=== PATIENT | female | born 1970 | race Caucasian/White ===

== ENCOUNTER 2022-06-22 07:16 | Outpatient (CLI) | payer BC, SELFPAY ==
--- NOTE | 2022-06-22 07:15 | CRLHL7_ITS ---
For Patients: As a result of the Cures Act, medical imaging exams and procedure reports are released immediately into your electronic medical record. You may view this report before your referring provider. If you have questions, please contact your health care provider. Indication: Migraines. Technique: Multiplanar, multisequence MRI of the brain was performed without intravenous contrast. Comparison: None relevant available. Findings: The corpus callosum, pituitary gland and clivus appears intact. Craniocervical junction is preserved. No cerebellar tonsillar ectopia. There is no restricted diffusion. No intracranial hemorrhage. The ventricles are proportionate to the cerebral sulci. The 4th ventricle appears midline. The basal cisterns appear patent. No abnormal extra-axial fluid collection identified. There is scattered nonspecific T2 FLAIR hyperintense foci involving the periventricular and subcortical white matter. There is no intracranial mass, abnormal mass-effect or midline shift identified. Major intracranial vascular flow voids appear grossly intact. Both globes are preserved. Impression: 1. No acute/subacute infarct. 2. Scattered nonspecific T2 FLAIR hyperintense foci involving the periventricular and subcortical white matter. Differential considerations include sequela of chronic ischemic microvascular disease or migraine headaches. Dictated by Ang Yi MD @ 06/22/2022 4:29:45 PM (Electronically Signed)
== END 2022-06-22 07:17 | disposition home or self-care (01) ==
LOC: MRI 07:17
PROVIDERS: PCP Physician Assistant Medical; Visit Provider Physician Assistant Medical
DX: G43.909 Migraine, unspecified, not intractable, without status migrainosus (principal)
CPT/HCPCS: 70551

== ENCOUNTER 2023-07-24 17:53 | Outpatient (CLI) | payer BC, SELFPAY | END 2023-07-24 17:54 | disposition home or self-care (01) | LOC: LKVREF 17:55 | PROVIDERS: PCP Physician Assistant Medical; Visit Provider Emergency Medicine | DX: R10.9 Unspecified abdominal pain (principal) | CPT/HCPCS: 86140 ==

== ENCOUNTER 2023-07-30 16:39 | Outpatient (CLI) | payer BC, SELFPAY ==
--- NOTE | 2023-07-30 17:00 | CRLHL7_ITS ---
For Patients: As a result of the Century Cures Act, medical imaging exams and procedure reports are released immediately into your electronic medical record. You may view this report before your referring provider. If you have questions, please contact your health care provider. CLINICAL HISTORY: Right lower quadrant pain TECHNIQUE: 2D kline scale ultrasound. In addition color Doppler and spectral Doppler analysis was performed of the pelvis using a transabdominal and transvaginal approach. FINDINGS: The uterus is absent. The right ovary measures 3.7 x 1.9 x 2.1 cm in size and the left ovary is not visualized. The right ovary demonstrates normal arterial and venous blood flow on color Doppler and spectral Doppler analysis. There are no suspicious fluid collections within the cul-de-sac. A simple cyst is present arising from the right ovary measuring 1.3 x 1.3 x 1.6 cm. IMPRESSION: 1.6 cm simple right ovarian cyst. No ovarian torsion. No excess pelvic free fluid or adnexal mass. Dictated by Frankie Mercado MD @ 08/01/2023 7:07:54 AM (Electronically Signed)
== END 2023-07-30 16:40 | disposition home or self-care (01) ==
LOC: US 16:40
PROVIDERS: PCP Physician Assistant Medical; Visit Provider Emergency Medicine
DX: R10.31 Right lower quadrant pain (principal); N83.201 Unspecified ovarian cyst, right side
CPT/HCPCS: 76830; 76856; 93976

== ENCOUNTER 2024-01-22 13:53 | Outpatient (CLI) | payer BC, SELFPAY | END 2024-01-22 13:54 | disposition home or self-care (01) | LOC: NFLDREF 13:55 | PROVIDERS: PCP Physician Assistant Medical; Visit Provider Obstetrics & Gynecology | DX: R10.2 Pelvic and perineal pain (principal) | CPT/HCPCS: 87086 ==

== ENCOUNTER 2024-01-23 14:42 | Outpatient (CLI) | payer BC, SELFPAY ==
--- NOTE | 2024-01-23 15:00 | US_ITS ---
Patient: ARNOLD GALINDO Facility:?[facility] Patient ID:?[id number] Site Patient ID:?[id number]. Site :?1970 Study:?US-OB Pelvis TA/TV Pelvic-01/23/2024 4:20:12 PM Ordering Physician:Marcie Denney Final Report: INDICATION: Continued RLQ pain, hx of right ovarian cyst COMPARISON: 07/30/2023 TECHNIQUE: 2D kline scale and color Doppler images were acquired of the pelvis using a transabdominal and transvaginal approach. FINDINGS: Status post hysterectomy. Intact vaginal cuff. The right ovary measures 2.0 x 1.1 x 1.0 cm in size and the left ovary measures 1.6 x 0.7 x 1.0 cm. The ovaries demonstrate normal arterial and venous blood flow on color Doppler analysis. Simple anechoic right adnexal cyst measures 16 x 13 x 14 millimeters. Previously, this measured 13 x 13 x 16 millimeters. No excess pelvic free fluid. IMPRESSION: Stable right adnexal cyst measuring 16 millimeters. No evidence of ovarian torsion. Dictated by Frankie Mercado MD @ 01/24/2024 9:03:53 AM Signed by:?Frankie Mercado MD @01/24/2024 9:03:53 AM (Electronic Signature)
--- NOTE | 2024-01-23 16:00 | US_ITS ---
Patient: ARNOLD GALINDO Facility:?[facility] Patient ID:?[id number] Site Patient ID:?[id number]. Site :?1970 Study:?US-Abdomen Renal-01/23/2024 4:22:40 PM Ordering Physician:Marcie Denney Final Report: CLINICAL HISTORY: Renal calculus COMPARISON: CT 01/14/2018 TECHNIQUE: Bravo scale and color Doppler images were acquired of the kidneys and urinary bladder. FINDINGS: Hyperechoic calculus left kidney measures 9 x 5 x 7 millimeters. Additional calculus right kidney measuring 12 x 13 x 6 millimeters. No hydronephrosis, cyst or mass. The right kidney measures 11.2cm in length and the left kidney measures 11.8cm in length. The renal cortex appears of normal thickness. The urinary bladder appears normal. Color Doppler images reveal a normal appearance of both ureteral jets. There is no evidence of bladder calculi or diverticula. Bladder volume 61 cc. IMPRESSION: Bilateral nonobstructing renal calculi, similar to the prior CT. Dictated by Frankie Mercado MD @ 01/24/2024 8:57:29 AM Signed by:?Frankie Mercado MD @01/24/2024 8:57:29 AM (Electronic Signature)
== END 2024-01-23 14:43 | disposition home or self-care (01) ==
LOC: US 14:42
PROVIDERS: PCP Physician Assistant Medical; Visit Provider Obstetrics & Gynecology
DX: N20.0 Calculus of kidney (principal); N80.9 Endometriosis, unspecified; R10.2 Pelvic and perineal pain
CPT/HCPCS: 76775; 76830; 76856; 93976

== ENCOUNTER 2024-01-27 11:26 | Outpatient (CLI) | payer BC, SELFPAY | END 2024-01-27 11:27 | disposition home or self-care (01) | LOC: NFLDREF 23:34 | PROVIDERS: PCP Physician Assistant Medical; Referring Provider Physician Assistant Medical; Visit Provider Family Medicine | DX: N20.0 Calculus of kidney (principal); N39.0 Urinary tract infection, site not specified; B96.20 Unspecified Escherichia coli [E. coli] as the cause of diseases classified elsewhere | CPT/HCPCS: 87086; 87186 ==

== ENCOUNTER 2024-08-13 16:48 | Outpatient (CLI) | payer BC, SELFPAY ==
--- OUTSIDE RECORDS SUMMARY | 2024-08-13 16:51 | XMS_ITS | Referral Summary ---
Author Organization [facility] Address [address] [place] [address] Care Team Providers Care Terrazzo Journeyman Name Role Phone Unavailable Primary Care Provider Unavailabl e Source Comments Patient records contain information from all sites at [facility]. For routine questions regarding patient records, call [phone] during business hours, M-F 8:00 AM - 5:00 PM Central Time. Record requests for emergency care only can be directed to [phone] at any time.[facility] Allergies Active Allergy Reactions Criticality Noted Date Comments Cat Dander Other (see comments) Low 11/12/2007 Itchy water eyes Codeine Sulfate Nausea And Vomiting High 04/23/2012 Pollen Extracts Other (see comments) Low 11/12/2007 Itchy water eyes Meperidine Other (see comments),GI intolerance High 09/02/2004 Vomiting and passed out PN: LW Reaction: Vomiting Oxycodone-Acetaminoph en Nausea And Vomiting High 04/29/2012 Medications No known medications Active Problems Problem Noted Date Diagnosed Date Stone Kidney And Ureteral 03/06/2018 Immunizations Name Administration Dates Next Due RZV (SHINGRIX) 04/11/2022 SARS-COV-2 (COVID-19) - MODERNA(Discontinued) 01/13/2021,12/16/2020 Td (Adult), adsorbed 03/16/2021 Tdap 12/02/2009 influenza vaccine quad (FLUZONE/FLUARIX) (6 months and older)(PF) 08/25/2021,02/09/2020(Deferred: Patient Refused) Social History Tobacco Use Types Packs/Day Years Used Date Smoking Tobacco: Never Smokeless Tobacco: Never Tobacco Cessation:Counseling Given: Not Answered Nutrition Answer Date Recorded Nutrition: EVOO Fat Source Unknown 12/12 Nutrition: Servings of Fruits/Vegetables per Day Not on file 12/12/2020 Dental Answer Date Recorded Dental: Regular Dentist Unknown 12/12/19 Comments No Sex and Gender Information Value Date Recorded Sex Assigned at Female 03/06/2018 10:29 AM CDT Legal Sex Female 10:51 AM HAND MICA PLATE LAYER Gender Identity Female 03/06/2018 10:29 AM CDT Sexual Orientation Not on file Last Filed Vital Signs Vital Sign Reading Time Taken Comments Blood Pressure 102/70 06/06/2022 2:21 PM CDT Pulse 80 06/06/2022 2:21 PM CDT Temperature 36.4 ??C (97.5 ??F) 03/06/2018 10:16 AM C DT Respiratory Rate - - Oxygen Saturation - - Inhaled Oxygen Concentration - - Weight 76.9 kg (169 lb 6.8 oz) 06/06/2022 2:21 P M CDT Height 163.6 cm (5' 4.41) 06/06/2022 2:21 PM CD T Body Mass Index 28.71 06/06/2022 2:21 PM CDT Plan of Treatment Not on file Procedures Procedure Name Priority Date/Time Associated Diagnosis Comments BI BREAST SCREENING BILATERAL WITH TOMOSYNTHESIS RAD - Routine (most inpatients and all outpatients) 11/05/2023 2:54 PM HAND MICA PLATE LAYER Screening Mammogram Breast Cancer GLUCOSE, FASTING, S/P Routine 03/06/2018 11:49 AM CDT Stone Kidney And Ureteral from Last 3 Months or Most Recently Relevant to Health Maintenance Results * BI Breast Screening Bilateral with Tomosynthesis (11/05/2023 2:54 PM HAND MICA PLATE LAYER) Anatomical Region Laterality Modality Breast, Breast Imaging RST L OS, Breast Imaging ARZ LOS, Breast Imaging FLA LOS Bilateral Mammography Impressions 11/05/2023 4:07 PM HAND MICA PLATE LAYER Negative. RECOMMENDATION: ??Annual Screening Mammogram ASSESSMENT: ??BI-RADS: 1: Negative. Narrative 11/05/2023 4:07 PM HAND MICA PLATE LAYER EXAM: ??BI BREAST SCREENING BILATERAL WITH TOMOSYNTHESIS Current study was evaluated with a Computer Aided Detection (CAD) system. INDICATION: ??Screening mammogram. COMPARISON: ??Prior exam(s) were available and reviewed for comparison. DENSITY: ??c. The breast(s) are heterogeneously dense, which may obscure small masses. FINDINGS: ??No findings of malignancy. ??No significant change since prior exam. Procedure Note Jed Hoyt M.D., Ph.D. - 11/05/2023 EXAM: BI BREAST SCREENING BILATERAL WITH TOMOSYNTHESIS Current study was evaluated with a Computer Aided Detection (CAD) system. INDICATION: Screening mammogram. COMPARISON: Prior exam(s) were available and reviewed for comparison. DENSITY: c. The breast(s) are heterogeneously dense, which may obscuresmall masses. FINDINGS: No findings of malignancy. No significant change since priorexam. IMPRESSION: Negative. RECOMMENDATION: Annual Screening Mammogram ASSESSMENT: BI-RADS: 1: Negative. Zhen Araiza P.A.-C. IMG BI PROCEDURES Final Re sult * Glucose, Fasting (03/06/2018 11:49 AM CDT) Glucose, P 96 70 - 100 mg/dL 03/06/2018 12:52 PM CDT [facility] Last Intake 14 hr 03/06/2018 12:11 PM CDT [facility] Blood (Blood, Venous) 03/06/2018 11:49 AM CDT 03/06/2018 12:11 PM CDT us Heike Dumont M.D. LAB BLOOD NON ADD-ON Final Resul t [facility] [address] [place] [address], [facility] from Last 3 Months or Most Recently Relevant to Health Maintenance Insurance [facility]
--- OUTSIDE RECORDS SUMMARY | 2024-08-13 16:51 | XMS_ITS | Clinical Summary ---
Author Organization [facility] Address [place], [place] [address] Care Team Providers Care Supervisor Prepress Name Role Phone Jorditiana Daniela Hannah GONSALVES Primary Care Provider [phone] Allergies Active Allergy Reactions Criticality Noted Date Comments Meperidine Syncope,Vomiting 11/30/2010 Oxycodone-Acetaminophen Syncope,Vomiting 2010 Medications Medication Sig Dispensed Refills Start Date End Date Status midodrine (PROAMATINE) 5 mg tablet Take 1 tablet by mouth 3 times daily. 0 12/29/2010 Active leuprolide acetate (LUPRON DEPOT, 3 MONTH,) 11.25 mg injectionIndication s:Endometriosis, site unspecified Inject 11.25 mg intramuscular every 3 months. 1 Kit 0 01/31/2013 Active Immunizations Name Administration Dates Next Due Tdap 12/02/2009 12/02/2019 Family History Relation Name Status Comments Brother Alive Father Alive Mother Alive Social History Tobacco Use Types Packs/Day Years Used Date Smoking Tobacco: Never Smokeless Tobacco: Never Alcohol Use Standard Drinks/Week Comments Yes 0 (1 standard drink = 0.6 oz pur e alcohol) Rare Sex and Gender Information Value Date Recorded Sex Assigned at Not on file Gender Identity Not on file Sexual Orientation Not on file Obstetrics History Para Term AB IAB SAB Ectopic Multiple Livin g Live Births 4 2 2 0 2 0 1 1 0 2 2 Date Outcome GA Total Labor Labor/2nd/3rd Weight Sex Type Anes PTL Jennifer A1 A5 Name Clin 1999 Ectopic 1 Term 40w 0d 3.8 kg (8 lb 6 oz) F Vag Living 2002 SAB 4 Term 41w 0d 4.17 kg (9 lb 3 oz) M Vag Living Last Filed Vital Signs Vital Sign Reading Time Taken Comments Blood Pressure 98/54 01/31/2013 1:11 PM CDT Pulse 76 01/31/2013 1:11 PM CDT Temperature 37.2 ??C (98.9 ??F) 01/03/2011 1 1:37 AM CDT Respiratory Rate 16 01/03/2011 11:3 7 AM CDT Oxygen Saturation 100% 01/03/2011 11: 37 AM CDT Inhaled Oxygen Concentration - - Weight 68.9 kg (151 lb 12.8 oz) 01/31/2013 1:11 PM CDT Height 162.6 cm (5' 4) 12/30/2010 4:00 PM BLANKBOOK STITCHING MACHINE OPERATOR Body Mass Index 26.06 12/30/2010 4:00 PM BLANKBOOK STITCHING MACHINE OPERATOR Plan of Treatment Health Maintenance Due Date Last Done Comments Depression screening for age 12+ 1982 HIV for age 15-65 1985 BMI (ht and wt on same day) for age 18+ 1988 Hepatitis C screening for age 18-79 1988 Colonoscopy through age 75 2015 Lipids for age 45-75 2015 Mammogram for age 45-75 2015 09/21/20 12 (Completed outside of [facility]), 03/17/2011 Tetanus booster 12/02/2019 12/02/2009 Zoster (shingles) series for age 50+ (1 of 2) 2020 COVID-19 vaccine series ( season) 2024 01/13/2021, 12/16/2020 Influenza for age 50-64 06/22/2024 Tdap Completed 12/02/2009 Pneumococcal series for age 6-64 Aged Out No longer eligible based on patient's age to complete this topic Procedures Procedure Name Priority Date/Time Associated Diagnosis Comments SCAN-MAMMOGRAPHY REPORT 03/17/2011 12:00 AM CDT from Last 3 Months or Most Recently Relevant to Health Maintenance Results * SCAN-MAMMOGRAPHY REPORT (03/17/2011 12:00 AM CDT) Anatomical Region Laterality Modality Other Narrative Procedure Note Scanner - 03/17/2011 12:00 AM CDT Scanner OTHER from Last 3 Months or Most Recently Relevant to Health Maintenance Advance Directives * Full Code (Latest Code Status on File) Date Activated Date Inactivated Comments 01/02/2011 2:28 PM 01/03/2011 7:38 PM * Full Code Date Activated Date Inactivated Comments 01/02/2011 10:58 AM 01/02/2011 2:28 PM Care Teams Supervisor Prepress Relationship Specialty Start Date End Date Rubi January BRINA Young [address] [place], [place] [id number] PCP - General Physician Pile Driver 12/28/10
--- OUTSIDE RECORDS SUMMARY | 2024-08-13 16:51 | XMS_ITS | Clinical Summary ---
Author Organization [facility] Address [address] [place] [address] Care Team Providers Care Project Management Intern Name Role Phone Unavailable Primary Care Provider Unavailabl e Source Comments Patient records contain information from all sites at [facility]. For routine questions regarding patient records, call [phone] during business hours, M-F 8:00 AM - 5:00 PM Central Time. Record requests for emergency care only can be directed to [phone] at any time.[facility] Allergies Active Allergy Reactions Criticality Noted Date [...] (6 months and older)(PF) 08/25/2021,02/09/2020(Deferred: Patient Refused) Family History Medical History Relation Name Comments Lung cancer Father Colon cancer Maternal Grandmother Melanoma Mother Colon cancer Paternal Grandfather Relation Name Status Comments Father Maternal Grandmother Mother Paternal Grandfather Social History Tobacco Use Types Packs/Day Years Used Date Smoking Tobacco: Never Smokeless Tobacco: Never Tobacco Cessation:Counseling Given: Not Answered Nutrition Answer Date Recorded Nutrition: EVOO Fat Source Unknown 12/12 Nutrition: Servings of Fruits/Vegetables per Day Not on file 12/12/2020 Dental Answer Date Recorded Dental: Regular Dentist Unknown 12/12/19 21 Comments No Sex and Gender Information Value Date Recorded Sex Assigned at Female 03/06/2018 10:29 AM CDT Legal Sex Female 10:51 AM GRAPHIC DESIGN MANAGER Gender Identity Female 03/06/2018 10:29 AM CDT [...] 06/06/2022 2:21 PM CDT Plan of Treatment Health Maintenance Due Date Last Done Comments CT Colonography 1970 Cologuard 1970 Colonoscopy 1970 Colorectal Cancer Screening 1970 FIT 1970 HIV Screening 1970 Hepatitis C Screening 1970 Lipid (Cholesterol) Screening 1970 Hepatitis B Vaccines (1 of 3 - 19+ 3-dose series) 1989 Fasting Glucose for Diabetes Screening 03/06/2021 03/06/2018 Depression Screening (Annual PHQ-2) 10/22/2023 COVID-19 Vaccine ( season) 2024 10/18/2023, 09/23/2021, 01/13/2021, Additional history exists Influenza Vaccine (#1) 2024 3, 06/13/2022, 08/25/2021, Additional history exists Mammogram 11/05/2024 11/05/2023, 05/22, 03/23/2021, Additional history exists DTaP,Tdap,and Td Vaccines (4 - Td or Tdap) 03/16/2031 03/16/2021, 02/09/2020, 12/02/2009 Zoster Vaccines Completed 06/14/2022, 04/11/2022 Pneumococcal vaccine (0-64 years) Aged Out No longer eligible based on patient's age to complete this topic Procedures Procedure Name Priority Date/Time Associated Diagnosis Comments BI BREAST SCREENING BILATERAL WITH TOMOSYNTHESIS RAD - Routine (most inpatients and all outpatients) 11/05/2023 2:54 PM GRAPHIC DESIGN MANAGER Screening Mammogram Breast Cancer GLUCOSE, FASTING, S/P Routine 03/06/2018 11:49 AM CDT Stone Kidney And Ureteral from Last 3 Months or Most Recently Relevant to Health Maintenance Results * BI Breast Screening Bilateral with Tomosynthesis (11/05/2023 2:54 PM GRAPHIC DESIGN MANAGER) Anatomical Region Laterality Modality Breast, Breast Imaging RST L OS, Breast Imaging ARZ LOS, Breast Imaging FLA LOS Bilateral Mammography Impressions 11/05/2023 4:07 PM GRAPHIC DESIGN MANAGER Negative. RECOMMENDATION: ??Annual Screening Mammogram ASSESSMENT: ??BI-RADS: 1: Negative. Narrative 11/05/2023 4:07 PM GRAPHIC DESIGN MANAGER EXAM: ??BI BREAST SCREENING BILATERAL WITH TOMOSYNTHESIS [...] - 100 mg/dL 03/06/2018 12:52 PM CDT [facility] Last Intake 14 hr 03/06/2018 12:11 PM CDT [facility] Blood (Blood, Venous) 03/06/2018 11:49 AM CDT 03/06/2018 12:11 PM CDT Heike Dumont M.D. LAB BLOOD NON ADD-ON Final Resul t [facility] [address] [place] [address], [facility] from Last 3 Months or Most Recently Relevant to Health Maintenance Insurance [facility]
--- OUTSIDE RECORDS SUMMARY | 2024-08-13 16:51 | XMS_ITS | Clinical Summary ---
Author Organization [facility] Address [address] [place] [address] Care Team Providers Care Resourcing Consultant Name Role Phone Md, Not Listed Primary Care Provider Unavailabl e Allergies Active Allergy Reactions Criticality Noted Date Comments Cat Dander Rash Low 11/12/2007 Itchy water eyes Codeine Nausea,Vomiting High 04/23/2012 Meperidine Dizziness,Vomiting High 09/02/2004 Other Reaction(s): GI intolerance Vomiting and passed out PN: LW Reaction: Vomiting Oxycodone-Acetaminophe n Dizziness,Nausea,Vomi ting High 12/29/2010 Pollen Extracts Rash Low 11/12/2007 Itchy water eyes Medications Medication Sig Dispensed Refills Start Date End Date Status acetaminophen (TYLENOL) 500 mg oral tablet TAKE 1-2 TABS BY MOUTH 3X DAILY NEEDED FOR PAIN. Active albuterol HFA (PROVENTIL;VENTOLIN HFA) 90 mcg/actuation Inhl inhaler 02/13/2024 Active cephalexin (KEFLEX) 250 mg oral capsule Take 1 capsule (250 mg) by mouth twice a day. 8 capsule 04/11/2024 Active docusate sodium (COLACE) 100 mg oral capsule Take 1 capsule (100 mg) by mouth twice a day. 20 capsule 04/11/2024 Active Social History Tobacco Use Types Packs/Day Years Used Date Smoking Tobacco: Never Smokeless Tobacco: Never Tobacco Cessation:Counseling Given: Not Answered Alcohol Use Standard Drinks/Week Comments Yes 0 (1 standard drink = 0.6 oz pur e alcohol) occasially Sex and Gender Information Value Date Recorded Sex Assigned at Not on file Gender Identity Not on file Sexual Orientation Not on file Last Filed Vital Signs Vital Sign Reading Time Taken Comments Blood Pressure 137/93 04/11/2024 1:15 PM CDT Pulse 60 04/11/2024 1:15 PM CDT Temperature 36.6 ??C (97.8 ??F) 04/11/2024 12:30 PM C DT Respiratory Rate 18 04/11/2024 1:15 PM CDT Oxygen Saturation 98% 04/11/2024 1:15 PM CDT Inhaled Oxygen Concentration - - Weight 70.8 kg (156 lb) 04/08/2024 3:56 PM CDT Height 162.6 cm (5' 4) 04/08/2024 3:56 PM CDT Body Mass Index 26.78 04/08/2024 3:56 PM CDT Plan of Treatment Health Maintenance Due Date Last Done Comments Colonoscopy 1970 Diabetes Screening 1970 Hepatitis C Screening 1970 Lipid Screening 1970 Pap Smear 1970 Anxiety Screening (JHONY-2) 1971 Depression Assessment (PHQ-2) 1971 COVID-19 Vaccine ( season) 2024 10/18/2023, 09/23/2021, 01/13/2021, Additional history exists Influenza Vaccine (#1) 2024 , 06/13/2022, 08/25/2021, Additional history exists Yearly Review of HCD 03/24/2025 03/24/2024, 02/08/20 24 Mammogram Screening 11/05/2025 11/05/2023, 11/05/2023, 06/06/2022, Additional history exists Adult Tetanus Booster 03/16/2031 03/16/2021 , 02/09/2020, 12/02/2009 RSV Vaccines (1 - 1-dose 75+ series) 2045 Zoster Vaccine Completed 06/14/2022, 04/11/2022 Pneumococcal <65 Aged Out No longer e ligible based on patient's age to complete this topic Medical Devices Implanted Type Area Drywall Hanger Device Identifier Shelf Expiration Date Model / Serial / Lot Stent Ureteral Inlay [id number] - [id number] Implanted:Qty: 1 on 02/15/2024 by Pat Yusuf MD at [facility] Stent Right: Bladder [employer] 05/30/2028 [id number] / / [id number] Stent Ureteral Inlay [id number] - [id number] Implanted:Qty: 1 on 04/11/2024 by Pat Yusuf MD at [facility] Stent Left: Bladder [employer] 06/12/2028 [id number] / / [id number] Advance Directives For more information, please contact: [phone] * Full Code (Latest Code Status on File) Date Activated Date Inactivated Comments 04/11/2024 11:06 AM 04/11/2024 7:55 PM Question Answer Comments How was code status determined? Patient * Full Code Date Activated Date Inactivated Comments 02/15/2024 10:04 AM 02/15/2024 6:13 PM Question Answer Comments How was code status determined? Patient Care Teams Resourcing Consultant Relationship Specialty Start Date End Date , Not Listed no address PCP - General Family Medicine 04/04/24
--- OUTSIDE RECORDS SUMMARY | 2024-08-13 16:51 | XMS_ITS ---
Author Organization [facility] Address [address] [place] [address] Care Team Providers Care Paper Cone Machine Tender Name Role Phone Unavailable Unavailable Unavailable Surgery Details Not on file Complications Check Surgery Details section. Procedure Estimated Blood Loss Check Surgery Details section. Procedure Findings Check Surgery Details section. Procedure Specimens Taken Check Surgery Details section.
--- OUTSIDE RECORDS SUMMARY | 2024-08-13 16:51 | XMS_ITS | Referral Summary ---
Author Organization [facility] Address [address] [place] [address] Care Team Providers Care Brim Rounder Name Role Phone Md, Not Listed Primary [...] 04/08/2024 3:56 PM CDT Plan of Treatment Not on file Medical Devices Implanted Type Area Registered Nurse Practitioner Device Identifier Shelf Expiration Date Model / Serial / Lot Stent Ureteral Inlay [id number] - [id number] Implanted:Qty: 1 on 02/15/2024 by Pat Yusuf MD at [facility] Stent Right: Bladder [employer] 05/30/2028 [id number] / / [id number] Stent Ureteral Inlay [id number] - [id number] Implanted:Qty: 1 on 04/11/2024 by Pat Yusuf MD at [facility] Stent Left: Bladder [employer] 06/12/2028 [id number] / / [id number] Advance Directives For more information, please contact: [phone] * Full Code (Latest Code Status on File) Date Activated Date Inactivated Comments 04/11/2024 11:06 AM 04/11/2024 7:55 PM Question Answer Comments How was code status determined? Patient * Full Code Date Activated Date Inactivated Comments 02/15/2024 10:04 AM 02/15/2024 6:13 PM Question Answer Comments How was code status determined? Patient Care Teams Brim Rounder Relationship Specialty Start Date End Date , Not Listed no address PCP - General Family Medicine 04/04/24
--- OUTSIDE RECORDS SUMMARY | 2024-08-13 16:51 | XMS_ITS | Data Portability ---
Author Organization [facility], [facility] Address [address] [place] [address] Care Team Providers Care Analyst Competitive Intelligence Name Role Phone KYREE BORJABON Primary Care Provider [phone] Assessment No assessment recorded. Plan of Treatment Reminders Order Date Submit Date Provider Last Modified By Organization Details Last Modified Time Details Appointments ESTABLISH ED 10 2023 03:30P Judith cote MD Not available Not available Not available Lab None recorded. Referral None recorded. Procedures None recorded. Surgeries None recorded. Imaging None recorded. Medication Orders None recorded. Patient TargetsNo targets recorded. Patient Instructions Encounter Date Encounter Id Patient Instructions Last Modified By Organization Details Last Modified Time 02/07/2024 [id number] I had a discussi on with the patient and explained the risks and benefits of stone treatment Extracorporeal Shock Wave Lithotripsy (ESWL) is a technique to treat urinary stone. The goal of this treatment is to break urinary stones into particles small enough to be passed out through the urinary tract. I understand that there are alternative methods to treat urinary stones, which include: No treatment of the urinary stone(s). Manipulation of a stone in the ureter back into the kidney with placement of a stent (a tube that drains the kidney) Internal (ureteroscope) examination of the urinary bladder and/or ureter with possible retrieval of stones in the ureter including possible laser fragmentation. Percutaneous Lithotripsy (PNL), a puncture/scope technique through the side directly into the kidney. Surgical removal of stone(s) through an incision. I explained that ESWL MAY or MAY NOT successfully fragment my stones. Successful ESWL treatment may result in stone fragments of varying size and that some fragments may be too large to pass easily or at all. Some stones will require the placement of a tube into the kidney, either through the bladder or through the side to facilitate passage of fragments before ESWL is done. Some fragments may require any or all of the above alternative treatments to be used following ESWL including possible repeat ESWL. Radiographs (x-rays) and other diagnostic studies are necessary following ESWL to assess the success of treatment and to diagnose urinary drainage problems, which might result from ESWL. Tubes or stents placed in the urinary tract before, during and after ESWL treatment will need to be removed in a timely fashion. RISKS OF ESWL The stone may be incompletely fragmented and require alternative treatment. There may be bruising of tissue along the path of the shock wave. There may be bleeding from ESWL sufficient enough to require transfusion. Damage to kidney has occurred and may require the removal of the kidney. Urinary infection associated with stones may become aggravated and become life threatening. is a rare possibility. Machine malfunction may occur necessitating removal from the lithotripter, rescheduling of your treatment and anesthetic. THESE ARE NOT PROBABLE RESULTS, BUT THEY ARE STATISTICAL POSSIBLITIES. [email or web address] Not available 02/07/2024 10:32:41 DECONTAMINATOR- Dx: Kidney stone, Urinary Urgency/ Referred by Gildardo Peterson MD / [place]. Referral from [facility], Dr. Gildardo Peterson MD Review of past medical records including urinary urgency, atrophic vulvovaginitis, vaginal bleeding, pelvic pain, vasovagal syncope, endometriosis, nephrolithiasis, asthma, insomnia and migraine headaches. Has had stones in the past, 5 years ago, eventually passed stone on her own. Review of past medical records from her last note at the [facility] 01/28/2024: Patient with urinary urgency and frequency and treated for possible UTI with cultures being sent. Renal ultrasound 01/23/2024 (compared to prior CT scan December 2017) Shows hyperechoic calculus left kidney 9 x 5 x 7 mm, additional calculus right kidney measuring 12 x 13 x 6 mm, no hydronephrosis or mass. Review of these findings showed 2 stones that are unlikely to pass. We talked about various treatment options and that an ultrasound is not the ideal test to see if the stones are radiopaque. If the stones show up on KUB x-ray then they potentially could be treated with shockwave lithotripsy. We talked about the risks and benefits of shockwave lithotripsy and ureteroscopy as well. Patient has bilateral stones and it is not recommended to remove or treat both stones at the same time. will get KUB xray today and call with results if stones are seen then will schedule Cysto and Right Stent and Right ESWL if successful then she may also have the left side treated at another time and, most importantly, would benefit from 24 h urine and met w/u [email or web address] Not available 02/07/2024 10:31:41 02/26/2024 [id number] Nephrolithiasis Dx: Kidney stone, Urinary Urgency/ Referred by Gildardo Peterson MD / [place]. Referral from [facility], Dr. Gildadro Peterson MD Past medical records including urinary urgency, atrophic vulvovaginitis, vaginal bleeding, pelvic pain, vasovagal syncope, endometriosis, nephrolithiasis, asthma, insomnia and migraine headaches. Renal ultrasound 01/23/2024 (compared to prior CT scan December 2017) Shows hyperechoic calculus left kidney 9 x 5 x 7 mm, additional calculus right kidney measuring 12 x 13 x 6 mm, no hydronephrosis or mass. 02/15/2024 right stent, right ESWL, 13 mm stone. 02/26/2024 nephrolithiasis Review and interpretation of KUB x-ray: No obvious stone seen, right stent in place excellent fragmentation Stent in place with fragmentation noted, we discussed the pros and cons of stent removal and the chance of her having some retained stones or having pain with passage of small fragments. Patient also noted to have 9 mm stone in contralateral, left kidney, we discussed treatment options for this if she wishes to proceed with cystoscopy, left stent placement and left ESWL. Patient wishes to have her left side done at a later date, after her daughter's graduation from [employer] in [place], and will call to schedule this at her convenience. and, most importantly, would benefit from 24 h urine and met w/u, but this will be after the treatment of her [email or web address] Not available 02/26/2024 15:32:22 05/01/2024 [id number] Nephrolithiasis Dx: Kidney stone, Urinary Urgency/ Referred by Gildardo Peterson MD / [place]. Referral from [facility], Dr. Gildardo Peterson MD Past medical records including urinary urgency, atrophic vulvovaginitis, vaginal bleeding, pelvic pain, vasovagal syncope, endometriosis, nephrolithiasis, asthma, insomnia and migraine headaches. Renal ultrasound 01/23/2024 (compared to prior CT scan December 2017) Shows hyperechoic calculus left kidney 9 x 5 x 7 mm, additional calculus right kidney measuring 12 x 13 x 6 mm, no hydronephrosis or mass. 02/15/2024 right stent, right ESWL, 13 mm stone. 02/26/2024 nephrolithiasis Review and interpretation of KUB x-ray: No obvious stone seen, right stent in place excellent fragmentation Stent in place with fragmentation noted, we discussed the pros and cons of stent removal and the chance of her having some retained stones or having pain with passage of small fragments. Patient also noted to have 9 mm stone in contralateral, left kidney, we discussed treatment options for this if she wishes to proceed with cystoscopy, left stent placement and left ESWL. Patient wishes to have her left side done at a later date, after her daughter's graduation from [employer] in [place], and will call to schedule this at her convenience. 04/11/2024 cysto, left stent placement and LEFT ESWL for 3 stones 05/01/2024 Nephrolithiasis KUB xray reviewed and interpreted: small, 2.5 mm stone stone left ureteral stent Cystoscopy with left ureteral stent removal and, most importantly, would benefit from 24 h urine and met w/u, but this will be after the treatment of her [email or web address] Not available 05/01/2024 16:54:26 Reason for Referral None Reported. Results Created Date Observation Date Name Description Value Unit Range Abnormal Flag Note LastModifiedBy Organization Detail LastModifiedTime 07/21/2007/25/2024 LITHO LINK 24HR URINE PANEL cystine, urine, qualitative NEG negati ve Not Available [facility] ([facility]) [address], [place], [address], 07/25/2024 01:08:01 07/21/20 24 07/25/2024 LITHO LINK 24HR URINE PANEL urine volume (preserved) 1680 mL/24 _HR 500-40 00 Not Available [facility] ([facility]) [address], [place], [address], 07/25/2024 01:08:01 07/21/2007/25/2024 LITHO LINK 24HR URINE PANEL calcium oxalate saturation 2.98 6.00-1 0.00 below low normal Not Available [facility] ([facility]) [address] [place], [address], 07/25/2024 01:08:01 07/21/2007/25/2024 LITHO LINK 24HR URINE PANEL calcium, urine 126 mg/24 _HR <200 Not Available [facility] ([facility]) [address] [place], [address], 07/25/2024 01:08:01 07/21/2007/25/2024 LITHO LINK 24HR URINE PANEL oxalate, urine 17 mg/24 _HR 20-40 below low normal Not Available [facility] ([facility]) [address] [place], [address], 07/25/2024 01:08:01 07/21/2007/25/2024 LITHO LINK 24HR URINE PANEL citrate, urine 572 mg/24 _HR >550 Not Available [facility] ([facility]) [address] [place], [address], 07/25/2024 01:08:01 07/21/2007/25/2024 LITHO LINK 24HR URINE PANEL calcium phosphate saturation 1.04 0.50-2 .00 Not Available [facility] ([facility]) [address] [place], [address], 07/25/2024 01:08:01 07/21/2007/25/2024 LITHO LINK 24HR URINE PANEL pH, 24 HR, urine 6.428 5.800- 6.200 above high normal Not Available [facility] ([facility]) [address] [place], [address], 07/25/2024 01:08:01 07/21/20 24 07/25/2024 LITHO LINK 24HR URINE PANEL uric acid saturation 0.26 <1.00 Not Available [facility] ([facility]) [address], [place], [address], 07/25/2024 01:08:01 07/21/2007/25/2024 LITHO LINK 24HR URINE PANEL uric acid, urine 497 mg/24 _HR <750 Not Available [facility] ([facility]) [address] [place], [address], 07/25/2024 01:08:01 07/21/2007/25/2024 LITHO LINK 24HR URINE PANEL sodium, urine 112 mmol/ 24_HR 50-150 Not Available [facility] ([facility]) [address] [place], [address], 07/25/2024 01:08:01 07/21/2007/25/2024 LITHO LINK 24HR URINE PANEL potassium, urine 44 mmol/ 24_HR 20-100 Not Available [facility] ([facility]) [address] [place], [address], 07/25/2024 01:08:01 07/21/20 24 07/25/2024 LITHO LINK 24HR URINE PANEL magnesium, urine 85 mg/24 _HR 30-120 Not Available [facility] ([facility]) [address] [place], [address], 07/25/2024 01:08:01 07/21/20 24 07/25/2024 LITHO LINK 24HR URINE PANEL phosphorus, urine 615 mg/24 _HR 600-12 00 Not Available [facility] ([facility]) [address] [place], [address], 07/25/2024 01:08:01 07/21/20 24 07/25/2024 LITHO LINK 24HR URINE PANEL ammonium, urine 21 mmol/ 24_HR 15-60 Not Available [facility] ([facility]) [address] [place], [address], 07/25/2024 01:08:01 07/21/20 24 07/25/2024 LITHO LINK 24HR URINE PANEL chloride, urine 110 mmol/ 24_HR 70-250 Not Available [facility] ([facility]) [address] [place], [address], 07/25/2024 01:08:01 07/21/2007/25/2024 LITHO LINK 24HR URINE PANEL sulfate, urine 22 mEq/2 4_HR 20-80 Not Available [facility] ([facility]) [address] [place], [address], 07/25/2024 01:08:01 07/21/2007/25/2024 LITHO LINK 24HR URINE PANEL urea nitrogen, urine 6.49 g/24_ HR 6.00-1 4.00 Not Available [facility] ([facility]) [address] [place], [address], 07/25/2024 01:08:01 07/21/2007/25/2024 LITHO LINK 24HR URINE PANEL protein catabolic rate 0.7 g/kg/ 24_HR 0.8-1. 4 below low normal Not Available [facility] ([facility]) [address] [place], [address], 07/25/2024 01:08:01 07/21/20 24 07/25/2024 LITHO LINK 24HR URINE PANEL creatinine, urine 1019 mg/24 _HR not applic . Not Available [facility] ([facility]) [address] [place], [address], 07/25/2024 01:08:01 07/21/20 24 07/25/2024 LITHO LINK 24HR URINE PANEL creatinine/k g body weight 13.9 mg/24 _HR/k g 8.7-20 .3 Not Available [facility] ([facility]) [address] [facility], [place], [address], 07/25/2024 01:08:01 07/21/20 24 07/25/2024 LITHO LINK 24HR URINE PANEL calcium/kg body weight 1.7 mg/24 _HR/k g <4.0 Not Available [facility] ([facility]) [address] [facility], [place], [address], 07/25/2024 01:08:01 07/21/20 24 07/25/2024 LITHO LINK 24HR URINE PANEL calcium/crea tinine ratio 123 mg/g_ creat 51-262 Not Available [facility] ([facility]) [address] [facility], [place], [address], 07/25/2024 01:08:01 07/21/20 24 07/25/2024 LITHO LINK 24HR URINE PANEL comment NOTE Not Available [facility] ([facility]) [address] [facility], [place], [address], 07/25/2024 01:08:01 02/07/20 24 02/07/2024 XR, kidne y + urete r + bladd er No observ ation record ed. [facility] [address], [place], [address], 02/08/2024 10:57:20 02/26/20 24 02/26/2024 XR, kidne y + urete r + bladd er No observ ation record ed. [facility] [place] [address], [place], [address], 02/27/2024 11:23:36 04/11/20 24 04/11/2024 XR, kidne y + urete r + bladd er No observ ation record ed. [facility] [address], [place], [address], 04/14/2024 09:32:26 05/01/20 24 05/01/2024 XR, kidne y + urete r + bladd er No observ ation record ed. [email or web address] [address] [place], [address], 05/01/2024 18:13:26 Result Notes None recorded. Problems Name Problem SNOMED Code Status Onset Date Resolution Date Notes Provider Name and Address Organization Details Recorded Time Kidney stone 37781522 Active 024 Tigre Yusuf MD [address] [place] [address],[address], [address] , [facility] 02/06/2024 10:52:11 Problem Notes None recorded. Procedures Surgical History Date Name Laterality Status Provider Name and Address Organization Details Recorded Time 05/01/20 24 Cystoscopy with foreign body/stent removal completed Tigre Yusuf MD [address] [place] [address],[address], [place], [address], [facility] 04/30/2024 18:16:19 02/26/20 24 Cystoscopy with foreign body/stent removal completed Tigre Yusuf MD [address] [place] [address],[address], [address], [facility] 02/26/2024 12:22:20 12/01/19 11 Partial Hysterectomy completed Michelle Chen [facility] 02/15/2024 12:48:12 10/22/19 10 Partial hysterectomy completed [facility] 02/07/2024 10:19:07 10/05/19 85 Hernia Repair completed Michelle Chen [facility] 02/15/2024 12:48:12 Other completed Michellekaren Chen [facility] 02/15/2024 12:48:12 Imaging Results Imaging Date Name Status LastModified by Organiz ation Details LastModified Time 02/07/2024 XR, kidney + ureter + bladder completed [facility] [address], [place], [address], 02/08/2024 10:57:20 02/26/2024 XR, kidney + ureter + bladder completed [facility] [place] [address], [place], [address], 02/27/2024 11:23:36 04/11/2024 XR, kidney + ureter + bladder completed [facility] [address], [place], [address], 04/14/2024 09:32:26 05/01/2024 XR, kidney + ureter + bladder completed [facility] [address], [place], [address], 05/01/2024 18:13:26 Procedure Notes None recorded. Medical Equipment None Reported. Allergies Allergen ID Allergen Name Allergen Category Reaction Reaction Severity Criticality Documentation Date Start Date Code Code System Note Provider Name and Address Organization Details Recorded Time 227523 codeine medicatio n vomiting mild Not available 02/07/[address] [facility] 4 10:17:05 697991 Demerol medicatio n vomiting mild Not available 02/07/2024 [address] [facility] 4 10:17:05 911366 acetamino phen / oxycodone medicatio n vomiting mild Not available 02/07/2024 [address] [facility] 4 10:17:05 Medications Name Sig Start Date Stop Date Status Note LastModified by Organization Details LastModified Time ibuprofen 800 mg tablet TAKE 1 TABLET BY MOUTH THREE TIMES A DAY NEEDED FOR PAIN. active Not Available Not Available No t Available cephalexin 250 mg capsule TAKE 1 CAPSULE (250 MG) BY MOUTH TWICE A DAY. 05/01 completed Not Available Not Available Not Available phenazopyri dine 200 mg tablet 200 MG ORALLY THREE TIMES A DAY NEEDED FOR PAIN active Not Available Not Available No t Available tramadol 50 mg tablet TAKE 1 TABLET BY MOUTH EVERY 6 HOURS NEEDED FOR PAIN. active Not Available Not Available No t Available acetaminoph en 500 mg tablet TAKE 1-2 TABS BY MOUTH 3X DAILY NEEDED FOR PAIN. active Not Available Not Available No t Available docusate sodium 100 mg capsule TAKE 1 CAPSULE BY MOUTH TWICE A DAY active Not Available Not Available No t Available albuterol sulfate HFA 90 mcg/actuati on aerosol inhaler INHALE 2 PUFFS EVERY 6 HOURS NEEDED FOR SHORTNESS OF BREATH OR WHEEZING active Not Available Not Available No t Available ondansetron 4 mg disintegrat ing tablet DISSOLVE 1 TAB SUBLINGUA LLY EVERY 6 HOURS NEEDED FOR NAUSEA active Not Available Not Available No t Available hydroxyzine pamoate 25 mg capsule TAKE 1-2 CAPS BY MOUTH EVERY 4-6 HRS NEEDED FOR PAIN MOR MUSCLE SPASM active Not Available Not Available No t Available nitrofurant oin monohydrate /macrocryst als 100 mg capsule 100 MG ORALLY EVERY 12 HOURS FOR 5 DAYS MUST ADMINISTE R WITH A MEAL/FOOD 02/25 completed Not Available Not Available Not Available Senexon-S 8.6 mg-50 mg tablet TAKE 2 TABS BY MOUTH DAILY NEEDED FOR CONSTIPAT ION active Not Available Not Available No t Available Vitals Date Recorded Body height Body mass index (BMI) Body weight Provider Name and Address Organization Details Last Updated DateTime 02/07/2024 162.56 cm 27.6 kg/m2 [address]06.[address] [facility] 02/07/2024 10:16:55 Date Recorded Body height Body mass index (BMI) Body weight Provider Name and Address Organization Details Last Updated DateTime 02/26/2024 162.56 cm 26.3 kg/m2 78534.63 rocael Yusuf MD [address] [place] [address], [id number] [place] [address] [facility] 02/26/2024 15:05:38 Date Recorded Body height Body mass index (BMI) Body weight Provider Name and Address Organization Details Last Updated DateTime 05/01/2024 162.56 cm 26.3 kg/m2 90926.63 rocael Yusuf MD [address] [place] [address],[address], [address] [place] [address] [facility]rolog 05/01/2024 16:33:44 Social History Question Answer Notes LastModified by Organizat ion Details LastModified Time Tobacco Smoking Status Never Smoker Jacob Yun jaycee [facility] 02/07/2024 10:18:19 What Is Your Level Of Alcohol Consumption? Moderate [email or web address] Information not available 02/15/2024 Race White [email or web address] Information no t available 02/15/2024 Ethnicity Not /Latin o [email or web address] Information not available 02/15/2024 Preferred Language Upper Sorbian [email or web address] Information not available 02/15/2024 What Was The Date Of Your Most Recent Tobacco Screening? 05/01/2024 Information not available 05/01/2024 Are You Sexually Active? Yes [email or web address] Information not available 02/15/2024 Do You Or Have You Ever Used Smokeless Tobacco? Never Used Smokeless Tobacco [email or web address] Information not available 02/15/2024 Do You Use Any Illicit Or Recreational Drugs? No [email or web address] Information not available 02/15/2024 How Many Days In The Past Year Have You Consumed 4 Or More Drinks? 0 Information no t available 05/01/2024 Sex: Unknown Functional Status None recorded. Mental Status None recorded. Family History Relationship Description Onset Age of this Age Resolved Age Notes LastModified by Organization Details LastModified Time Maternal Grandmother Family history of cancer of colon 98 Not available 02/14 12:48:02 Maternal Grandfather Family history of malignant neoplasm 84 Not available 02/14 12:48:02 Paternal Grandfather Family history of cancer of colon 68 Not available 02/14 12:48:02 Father Family history of malignant neoplasm 78 [email or web address] Not available 02/14 12:48:02 Medical History Condition Response Other Y High Blood Pressure N Kidney Stones Y Depression N Lung Disease N GERD/Acid Reflux N Sexually Transmitted Infection N Cancer N High Cholesterol N Diabetes N Bleeding Disorder N Heart Disease N Gynecological HistoryNo gynecological history recorded. Obstetrics History GPAL:G 0 P 0 0 0 0 Immunizations Vaccine Type Date Status Provider Name and Address Organization Details Recorded Time zoster recombinant 04/11/2022 completed Michelle Bar evie champion [facility] 02/15/2024 12:47:55 zoster recombinant 06/14/2022 completed Michelle Bar tels null, [facility] 02/15/2024 12:47:55 COVID-19, mRNA, LNP-S, PF, 100 mcg/0.5mL dose or 50 mcg/0.25mL dose 12/16/2020 completed Michelle Gustavo null, [facility] 02/15/2024 12:47:55 COVID-19, mRNA, LNP-S, PF, 100 mcg/0.5mL dose or 50 mcg/0.25mL dose 01/13/2021 completed Michelle Gustavo null, [facility] 02/15/2024 12:47:55 COVID-19, mRNA, LNP-S, PF, 100 mcg/0.5mL dose or 50 mcg/0.25mL dose 09/23/2021 completed Michelle Gustavo null, [facility] 02/15/2024 12:47:55 COVID-19, mRNA, LNP-S, PF, 50 mcg/0.5 mL 10/18/2023 completed Michelle Gustavo null, [facility] 02/15/2024 12:47:55 influenza, unspecified formulation 07/15/2009 completed Michelle Gustavo null, [facility] 02/15/2024 12:47:55 influenza, unspecified formulation 08/05/2004 completed Michelle Gustavo null, [facility] 02/15/2024 12:47:55 influenza, unspecified formulation 08/18/2003 completed Michelle Gustavo null, [facility] 02/15/2024 12:47:55 Tdap 12/02/2009 completed Michelle Gustavo null, [facility] 02/15/2024 12:47:55 Td (adult), 2 Lf tetanus toxoid, preservative free, adsorbed 02/09/2020 completed Michelle Gustavo null, [facility] 02/15/2024 12:47:55 Td (adult), 2 Lf tetanus toxoid, preservative free, adsorbed 03/16/2021 completed Michelle Gustavo null, [facility] 02/15/2024 12:47:55 Influenza, split virus, quadrivalent, PF 02/09/2020 completed Michelle Gustavo null, [facility] 02/15/2024 12:47:55 Influenza, split virus, quadrivalent, PF 06/13/2022 completed Michelle Gustavo null, [facility] 02/15/2024 12:47:55 Influenza, split virus, quadrivalent, PF 08/25/2021 completed Michelle Gustavo null, [facility] 02/15/2024 12:47:55 Influenza, split virus, quadrivalent, PF 10/18/2023 completed Michelle Gustavo null, [facility] 02/15/2024 12:47:55 Past Encounters Encounter ID Performer Location Encounter Start Date Encounter Closed Date Diagnosis/Indication Diagnosis SNOMED-CT Code Diagnosis ICD10 Code [id number] MD CHAVEZ [facility] [address] [place] [address] 02/07/2024 09:20:27 02/07/2024 15:21:58 Kidney stone 58777732 N20.0 [id number] Tigre [facility] [address] [address],[address] [place] [address] 02/26/2024 14:59:15 02/26/2024 15:33:52 Kidney stone 52362489 N20.0 [id number] MD CHAVEZ [facility] [address] [facility] [place] [address] 05/01/2024 15:53:59 05/09/2024 10:21:01 Kidney stone [id number] N20.0 Health Concerns Section Related Observation LastModified by Organization Detai ls LastModified Time None Recorded Concern Status LastModified by Organization Details LastModified Time None Recorded Advance Directives Directive None Recorded Payers Encounter Date Sequence Insurance Name Policy Number Policy [place] Covered Member ID [place] Member ID Guarantor Name 02/07/2024 1 [employer] [employer] Jeff Goinsosdaniel [id number] Rocio Mrosla 02/26/2024 1 [employer] Jeff Goinsosdaniel [id number] Rocio Mrosla 05/01/2024 1 [place] [employer] Jeff Sainz [id number] Rocio Sainz Notes Date Note Type Note Provider Name and Address Organization Details Recorded Time 02/07/2024 text/html HPI Notes: DECONTAMINATOR- D x: Kidney stone, Urinary Urgency/ Referred by Gildardo Peterson MD / Aaron. no major changes no fevers, chills, night sweats review of past medical history discussed medications and general health Tigre Yusuf MD [address] [place] [address],[facility] [address], [place], [address], [facility] 02/07/2024 10:33:44 02/26/2024 text/html HPI Notes: Has been doing well recently no major changes no fevers, chills, night sweats review of past medical history discussed medications and general health Tigre Yusuf MD [address] [place] [address],[facility] [address], [address], [facility] 02/26/2024 15:32:36 05/01/2024 text/html HPI Notes: Has been doing well recently no major changes no fevers, chills, night sweats review of past medical history discussed medications and general health Tigre Yusuf MD [address] [place] [address],[facility] [address], [place], [address], [facility] 05/01/2024 16:54:44 OBGyn Episode No OBEpisode recorded.
--- NOTE | 2024-08-13 17:00 | CRLHL7_ITS ---
For Patients: As a result of the Century Cures Act, medical imaging exams and procedure reports are released immediately into your electronic medical record. You may view this report before your referring provider. If you have questions, please contact your health care provider. CLINICAL HISTORY: Pelvic pain TECHNIQUE: 2D kline scale and color Doppler images were acquired of the pelvis using a transvaginal approach. FINDINGS: The uterus is absent. The left ovary is not visualized and the right ovary measures 2.9 x 1.5 x 2.8 cm. Right ovarian cyst is present measuring 1.8 x 1.2 x 1.6 cm. Right ovary demonstrates normal vascularity, as visualized, given limitations due to limited sonographic penetration. IMPRESSION: Small right ovarian cyst measures 1.8 cm. No pelvic free fluid. Dictated by Frankie Mercado MD @ 08/15/2024 1:58:13 PM (Electronically Signed)
== END 2024-08-13 16:49 | disposition home or self-care (01) ==
LOC: US 16:48
PROVIDERS: PCP Physician Assistant Medical; Visit Provider Physician Assistant
DX: R10.2 Pelvic and perineal pain (principal); N83.201 Unspecified ovarian cyst, right side
CPT/HCPCS: 76830; 93976

== ENCOUNTER 2024-08-29 21:40 | Outpatient (REF) | payer BC, SELFPAY ==
[2024-08-29 22:11] LABS: Chloride* 102 mmol/L (96-114); Potassium* 4.2 mmol/L (3.6-5.1); Sodium* 136 mmol/L (135-149)
[2024-08-29 22:14] LABS: Anion Gap 8 mEq/L (7-15); Blood Urea Nitrogen* 13 mg/dL (7-30); Carbon Dioxide* 26 mmol/L (20-32)
[2024-08-29 22:15] LABS: Calcium* 9.6 mg/dL (8.4-10.6); Phosphorus* 3.5 mg/dL (2.5-4.5); Uric Acid* 5.1 mg/dL (2.2-8.4)
[2024-08-29 22:27] LABS: PTH Intact* 56.8 pg/mL (14.2-75.2)
== END 2024-08-29 21:41 | disposition home or self-care (01) ==
LOC: NPINS 21:40
PROVIDERS: PCP Physician Assistant Medical; Visit Provider Urology
DX: N20.0 Calculus of kidney (principal)
CPT/HCPCS: 80051; 82310; 83970; 84100; 84520; 84550

== ENCOUNTER 2024-09-24 16:19 | Outpatient (CLI) | payer BC, SELFPAY ==
--- NOTE | 2024-09-24 16:45 | CRLHL7_ITS ---
For Patients: As a result of the 21st Century Cures Act, medical imaging exams and procedure reports are released immediately into your electronic medical record. You may view this report before your referring provider. If you have questions, please contact your health care provider. INDICATION: Chronic right lower quadrant pain TECHNIQUE: Volumetric helical scanning of the abdomen and pelvis was performed with 79 cc of Isovue 370 who contrast material IV. Coronal and sagittal reconstructions were obtained. COMPARISON: None. FINDINGS: There is no evidence of bowel obstruction or inflammation. A normal appendix is noted. Bowel is otherwise unremarkable except for a 3 cm posterior gastric fundal diverticulum. The liver is normal in size, shape and attenuation. The bile ducts are within normal limits. The spleen, adrenal glands and pancreas are negative. The kidneys are unremarkable. No lymphadenopathy is evident. No free fluid is demonstrated. Postop changes of hysterectomy are noted. No ovarian abnormality is apparent. The lung bases are essentially clear, and heart size is normal. A noncalcified 3 mm right lower lobe nodule is noted on image 10 of series 2. IMPRESSION: 1. Etiology of right lower quadrant pain not evident. Appendix is normal. 2. Post hysterectomy. 3. Noncalcified 3 mm right lower lobe nodule. In accordance with Fleischner Society Guidelines (see below), if the patient is low risk for lung cancer, no additional evaluation is necessary. If she has a smoking history or is otherwise at high risk for lung cancer, a [address] is recommended. FLEISCHNER SOCIETY GUIDELINES: LOW RISK: - nodule less than 6 mm: No follow-up needed. - nodule 6-8 mm: Initial follow-up CT at 6-12 months and then at 18-24 months if no change. - nodule greater than 8 mm: Follow-up CTs at around 3, 9, and 24 months. Dynamic contrast-enhanced CT, PET, and/or biopsy. MULTIPLE LOW RISK: - nodule less than 6 mm: No follow-up needed. - nodule 6-8 mm: CT at 3-6 months, then consider CT at 18-24 months. - nodule greater than 8 mm: CT at 3-6 months, then consider CT at 18-24 months. HIGH RISK: - nodule less than 6 mm: Follow-up at 12 months. If no change, no further imaging needed. - nodule 6-8 mm: Initial follow-up CT at 3-6 months and then at 9-12 and 24 months if no change. - nodule greater than 8 mm: Follow-up CTs at around 3, 9, and 24 months. Dynamic contrast-enhanced CT, PET, and/or biopsy. MULTIPLE HIGH RISK: - nodule less than 6 mm: Optional CT at 12 months. - nodule 6-8 mm: CT at 3-6 months, then at 18-24 months. - nodule greater than 8 mm: CT at 3-6 months, then at 18-24 months. HIGH RISK is defined as one or more of the following: - at least 20 pack-year smoking history or equivalent second-hand exposure. - personal history of cancer or family history of lung cancer. - occupational exposure (asbestos, beryllium, silica, uranium, radon) - chronic interstitial/fibrotic lung disease. Please note that all CT scans at this facility use dose modulation, iterative reconstruction, and/or weight-based dosing when appropriate to reduce radiation dose to as low as reasonably achievable. Dictated by Julian Prakash MD @ 09/26/2024 7:44:13 AM (Electronically Signed)
== END 2024-09-24 16:20 | disposition home or self-care (01) ==
LOC: CT 16:20
PROVIDERS: PCP Physician Assistant Medical; Visit Provider Physician Assistant
DX: R10.31 Right lower quadrant pain (principal); R91.8 Other nonspecific abnormal finding of lung field; Z87.891 Personal history of nicotine dependence
CPT/HCPCS: 74177; Q9967

== ENCOUNTER 2024-10-29 14:18 | Outpatient (CLI) | payer BC, SELFPAY | END 2024-10-29 14:19 | disposition home or self-care (01) | LOC: FRMREF 14:19 | PROVIDERS: PCP Physician Assistant Medical; Visit Provider Physician Assistant Medical | DX: G47.00 Insomnia, unspecified (principal) | CPT/HCPCS: 82728; 84443 ==

== ENCOUNTER 2025-01-22 09:18 | Outpatient (CLI) | payer BC, SELFPAY | END 2025-01-22 09:19 | disposition home or self-care (01) | LOC: LKVREF 09:19 | PROVIDERS: PCP Physician Assistant Medical; Visit Provider Emergency Medicine | DX: R00.2 Palpitations (principal) | CPT/HCPCS: 80048 ==

== ENCOUNTER 2025-05-07 13:38 | Outpatient (CLI) | payer BC, SELFPAY | END 2025-05-07 13:39 | disposition home or self-care (01) | LOC: NFLDREF 05-09 08:23 | PROVIDERS: PCP Physician Assistant Medical; Referring Provider Physician Assistant Medical; Visit Provider Physician Assistant Medical | DX: E55.9 Vitamin D deficiency, unspecified (principal); R00.2 Palpitations; R06.2 Wheezing; Z13.6 Encounter for screening for cardiovascular disorders | CPT/HCPCS: 80053; 80061; 82306; 84443 ==

== ENCOUNTER 2025-05-27 08:41 | Outpatient (CLI) | payer BC, SELFPAY | END 2025-05-27 08:42 | disposition home or self-care (01) | LOC: RAD 08:42 | PROVIDERS: PCP Physician Assistant Medical; Visit Provider Physician Assistant Medical | DX: R00.2 Palpitations (principal) | CPT/HCPCS: 93306 ==

== ENCOUNTER 2025-08-10 17:11 | Outpatient (CLI) | payer BC, SELFPAY ==
--- NOTE | 2025-08-10 17:30 | CRLHL7_ITS ---
For Patients: As a result of the Century Cures Act, medical imaging exams and procedure reports are released immediately into your electronic medical record. You may view this report before your referring provider. If you have questions, please contact your health care provider. INDICATION: pelvic pain, history of right ovarian cyst COMPARISON: 08/13/2024 TECHNIQUE: 2D kline-scale and color Doppler images were acquired of the pelvis using a transabdominal and transvaginal approach. Transvaginal imaging performed to better visualize the ovaries. Exam limited due to excess bowel gas. Spectral Doppler evaluation of the right ovary also performed. FINDINGS: Uterus is absent. The right ovary measures 1.9 x 1.2 x 2.6 cm in size and the left ovary is not visualized due to excess bowel gas. Normal spectral Doppler imaging of the right ovary. The right ovary also demonstrates normal arterial and venous blood flow on color Doppler analysis. There are no suspicious fluid collections within the cul-de-sac. A simple right ovarian cyst is present which measures 1.4 x 1.0 x 1.5 cm. IMPRESSION: Normal pelvic ultrasound. Dictated by Frankie Mercado MD @ 08/11/2025 10:42:54 AM (Electronically Signed)
== END 2025-08-10 17:12 | disposition home or self-care (01) ==
LOC: US 17:12
PROVIDERS: PCP Physician Assistant Medical; Visit Provider Obstetrics & Gynecology
DX: R10.31 Right lower quadrant pain (principal); N80.9 Endometriosis, unspecified
CPT/HCPCS: 76830; 76856; 93976